=== PATIENT | male | born 1960 | race Caucasian/White ===

== ENCOUNTER → 2021-05-17 | Outpatient (CLI) | payer MEDICARE, MEDICAID ==
--- NOTE | 2021-05-17 15:57 | CARD ---
MR#: [id number] Date of Study: 05/17/2021 Ordering Physician: HERMINIO RAMIREZ, Referring Physician: HERMINIO RAMIREZ, Tech: Sahil Velazquez [facility] APPROVED REPORT EXAM: Two-dimensional and M-mode echocardiogram with Doppler and color Doppler. Other Information Quality : FairHR: 59bpm Rhythm : NSR INDICATION Dyspnea 2D DIMENSIONS Left Atrium(2D)3.5 (1.6-4.0cm)IVSd1.1 (0.7-1.1cm) Aortic Root(2D)3.1 (2.0-3.7cm)LVDd3.4 (3.9-5.9cm) LVOT Diameter1.9 (1.8-2.4cm)PWd1.1 (0.7-1.1cm) LVDs2.4 (2.5-4.0cm)FS (%) 29.4 % SV27.2 mlLVEF(%)57.5 (>50%) Aortic Valve AoV Peak Rasta.123.4cm/sAoV VTI25.1cm AO Peak GR.6.1mmHgLVOT Peak Rasta.123.7cm/s LVOT VTI 25.42cmAO Mean GR.3mmHg YENNY (VMAX)2.27qp0KKT (VTI)2.91cm2 Mitral Valve MV E Smvaxjbg07.1cm/sMV DECEL [id number] MV A Yoenqlku47.9cm/sMV NLT95nq E/A Ratio0.9MVA (PHT)4.61cm2 TDI E/Lateral E'6.7E/Medial E'9.5 Pulmonary Valve PV Peak Jfkqpoub98.1cm/sPV Peak Grad.3mmHg Tricuspid Valve TR P. Fpzvnzdl735jh/sTR Peak Gr.21mmHg Pulmonary Vein S1 Wwaztgbw58.4cm/sD2 Jizdvzos90.1cm/s LEFT VENTRICLE The left ventricle is normal size. There is normal left ventricular wall thickness. The left ventricu lar systolic function is normal. The ejection fraction is 55-60%. There is normal LV segmental wall m otion. The left ventricular diastolic function and filling is normal for age. No left ventricle throm bus noted on this study. There is no ventricular septal defect visualized. There is no left ventricul ar aneurysm. There is no mass noted in the left ventricle. RIGHT VENTRICLE The right ventricle is normal size. There is normal right ventricular wall thickness. The right ventr icular systolic function is normal. ATRIA The left atrium size is normal. The right atrium size is normal. The interatrial septum is intact wit h no evidence for an atrial septal defect or patent foramen ovale as noted on 2-D or Doppler imaging. AORTIC VALVE The aortic valve is thickened but opens well. Doppler and Color Flow revealed trace aortic regurgitat ion. There is no significant aortic valvular stenosis. There is no aortic valvular vegetation. MITRAL VALVE The mitral valve is normal in structure and function. There is no evidence of mitral valve prolapse. There is no mitral valve stenosis. Doppler and Color-flow revealed trace mitral regurgitation. TRICUSPID VALVE The tricuspid valve is normal in structure and function. Doppler and Color Flow revealed trace tricus pid regurgitation. There is no tricuspid valve prolapse or vegetation. There is no tricuspid valve st enosis. PULMONIC VALVE The pulmonary valve is normal in structure and function. Doppler and Color Flow revealed no pulmonic valvular regurgitation. There is no pulmonic valvular stenosis. GREAT VESSELS The aortic root is normal in size. The ascending aorta is normal in size. The pulmonary artery is nor mal. The IVC is normal in size and collapses >50% with inspiration. PERICARDIAL EFFUSION There is no pleural effusion. There is no evidence of significant pericardial effusion. Critical Notification Critical Value: No <Conclusion> The left ventricular systolic function is normal. The ejection fraction is 55-60%. There is normal LV segmental wall motion. Trace mitral regurgitation. Trace tricuspid regurgitation. There is no evidence of significant pericardial effusion. Signed by : Nain Amaya, Electronically Approved : 05/17/2021 15:56:51
== END ==
LOC: ECHO 09:09
PROVIDERS: ATTEND Family Medicine
DX: R55 Syncope and collapse (principal); I10 Essential (primary) hypertension; F17.210 Nicotine dependence, cigarettes, uncomplicated; R06.00 Dyspnea, unspecified
CPT/HCPCS: 93306; C8929

== ENCOUNTER 2021-09-02 11:32 | Emergency (ER) | payer MEDICARE, MEDICAID ==
[~2021-09-02] VITALS: Ht 177.8 cm; Wt 85.0 kg
[2021-09-02 11:42] VITALS: BP 162/91
[2021-09-02] MEDS ORDERED: HALOPERIDOL LACTATE 5 MG/ML VIAL. ONE (11:48)
[2021-09-02] MEDS ORDERED: MIDAZOLAM HCL/PF 2 MG/2 ML VIAL. ONE (11:48)
[2021-09-02 12:09] LABS: BASO # 0.1 x10^3/uL (0.0-0.2); BASO % 1 % (0-3); EOS % 0 % (0-3); HEMATOCRIT 44.8 % (39.0-53.0); HEMOGLOBIN 15.1 g/dL (13.0-17.5); LYMPH % 7 % (24-48); MEAN CORPUSCULAR HEMOGLOBIN 32 pg (25-35); MEAN CORPUSCULAR HGB CONC 34 g/dL (31-37); MEAN CORPUSCULAR VOLUME 96 fL (79-100); MONO # 1.4 x10^3/uL (0.0-1.1); MONO % 9 % (0-9); NEUT # 13.3 x10^3/uL (1.8-7.7); NEUT % 84 % (31-73); PLATELET COUNT 214 x10^3/uL (140-400); RED BLOOD COUNT 4.68 x10^6/uL (4.30-5.70); RED CELL DISTRIBUTION WIDTH 13.9 % (11.5-14.5); WHITE BLOOD COUNT 15.8 x10^3/uL (4.0-11.0)
[2021-09-02 12:17] LABS: PROTHROMBIN TIME PATIENT 13.5 SEC (11.7-14.0)
--- NOTE | 2021-09-02 12:17 | RAD ---
EXAMINATION: XR PELVIS 1-2V. HISTORY: 61 years Male Reason: fall, altered mental status , pain FINDINGS: No fracture, dislocation or radiopaque foreign body. The joint spaces and articular surfaces appea r unremarkable. IMPRESSION: Unremarkable exam. Electronically signed by: Eduardo Cardenas MD (09/02/2021 12:14 PM) [id number]
--- NOTE | 2021-09-02 12:23 | RAD ---
XR CHEST 1V History: Fall, altered mental status. Comparison: None. Technique: Portable AP radiograph of the chest. Findings: A 10 cm linear metallic density projects over the right chest horizontally which is favored to repres ent superimposed artifact. The lungs are adequately inflated. No focal airspace consolidation, pleural effusion or pneumothorax. There is calcified left lower lobe granuloma. Cephalization and prominence of the pulmonary vasculat ure. The heart size is normal. Calcification of the aortic arch. The osseous structures and soft tiss ues are unremarkable. Impression: 1. Pulmonary vascular congestion. 2. 10 cm linear metallic density projecting over the right chest horizontally favored to represent e xternal artifact. Electronically signed by: Jarek Randall MD (09/02/2021 12:21 PM) [id number]
--- NOTE | 2021-09-02 12:34 | EKG ---
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
[2021-09-02 12:39] LABS: CALCIUM 8.9 mg/dL (8.5-10.1); CREATININE 1.3 mg/dL (0.7-1.3); GFR 55.8; POTASSIUM 3.9 mmol/L (3.5-5.1)
[2021-09-02 12:41] LABS: ALBUMIN 3.7 g/dL (3.4-5.0); ALBUMIN/GLOBULIN RATIO 1.1 (1.0-1.7); DIRECT BILIRUBIN 0.2 mg/dL (0.0-0.2); TOTAL BILIRUBIN 0.7 mg/dL (0.2-1.0); TOTAL PROTEIN 7.1 g/dL (6.4-8.2)
[2021-09-02 12:56] LABS: BACTERIA,URINE 0 /HPF (0-FEW)
[2021-09-02 12:56] LABS: % BANDS 1 % (0-9); % LYMPHS 5 % (24-48); % MONOS 3 % (0-10); % SEGS 91 % (35-66)
[2021-09-02 12:57] LABS: PLT ESTIMATE ADEQUATE (ADEQUATE)
[2021-09-02] MEDS ORDERED: DIPHTH,PERTUSS(ACELL),TET TOX 0.5 ML DISP.SYRIN. VAX IM ONE (13:00)
--- NOTE | 2021-09-02 13:02 | RAD ---
Exam Date: 09/02/2021 11:[address] HEAD AND C-SPINE WO Indication: Reason: AMS ,trauma / Spl. Instructions: / History: . One or more of the following dose reduction techniques were utilized: *Automated exposure control (AEC) *Adjustment of mA and/or kV according to patient size *Use of iterative reconstruction technique *CT scan done according to ALARA, or ALARA/IMAGE GENTLY EXAMINATION: CT OF THE HEAD WITHOUT CONTRAST INDICATION: Trauma, head injury, headache; TECHNIQUE: Noncontrast helical axial CT images of the head were obtained. FINDINGS: Motion artifact limits evaluation. There is an acute subdural hematoma along the left posterior falx and left tentorium measuring up to 4-5 mm in maximal thickness on coronal images. The ventricles and sulci are prominent consistent with cerebral volume loss. Patchy ill-defined low attenuation areas in the subcortical and periventricular white matter bilaterally are consistent with microvascular disease. There is no evidence of mass effect, midline shift, or acute territorial in farct. The visualized paranasal sinuses, mastoid air cells, and orbits are normal in appearance. IMPRESSION: Acute subdural hematoma along the left posterior falx and left tentorium without significant mass eff ect or midline shift. Volume loss and microvascular disease. Findings discussed with Gagan Alvarez RN at 09/02/2021 12:39 PM. FOR INTERNAL CODING PURPOSES Critical result: RESULT CODE: (C) EXAMINATION: CT OF THE CERVICAL SPINE WITHOUT CONTRAST Clinical Indication: Cervical spine pain after trauma Technique: Thin cut helical axial CT images through the cervical spine were obtained without contrast on a multi-detector CT scanner. Source data was then reconstructed into sagittal and coronal planes. Findings: Alignment is maintained without spondylolisthesis. Vertebral body heights are maintained without acute fracture. Mild to moderate multilevel degenerativ e changes are noted. No significant prevertebral soft tissue swelling is demonstrated. No severe osse ous central canal stenosis is seen. Mild biapical scarring is seen in the lungs. Impression: No evidence of acute cervical spine fracture or subluxation. Electronically signed by: Massimo Franks MD (09/02/2021 12:59 PM) [id number]
[2021-09-02] MEDS ORDERED: ETOMIDATE 20 MG/10 ML VIAL. IV ONE ×2 (13:05→13:15)
[2021-09-02] MEDS ORDERED: ROCURONIUM 50 MG/5 ML VIAL. ONE (13:05)
[2021-09-02] MEDS ORDERED: PROPOFOL 100 ML IV PRN (13:15)
[2021-09-02] MEDS ORDERED: ROCURONIUM 50 MG/5 ML VIAL. IV ONE (13:15)
[2021-09-02 13:29] LABS: BARBITURATES NEG (NEG); BENZODIAZEPINES NEG (NEG); CANNABINOIDS POS (NEG); COCAINE NEG (NEG); METHADONE NEG (NEG); OPIATES POS (NEG); PHENCYCLIDINE NEG (NEG)
[2021-09-02 13:33] LABS: AMPHETAMINE/METHAMPHETAMINE NEG (NEG)
[2021-09-02] MEDS ORDERED: methylPREDNISolone SOD SUCC PF 125 MG/2 ML VIAL. IV ONE (13:45)
[2021-09-02] MEDS ORDERED: IPRATRPIUM/ALBUTEROL 0.5/2.5MG 3 ML NEBU. NEB ONE (13:45)
[2021-09-02] MEDS ORDERED: niCARdipine INJ. IV ONE (13:52)
--- NOTE | 2021-09-02 13:56 | RAD ---
AP chest x-ray HISTORY: Status post ET and OG tube placement. COMPARISON: Chest x-ray September 02, 2021 FINDINGS: The thin metallic density across the right chest on the prior study has now moved and is cu rrently across the left upper chest presumably something outside of the patient. The right lateral ch est including portion of the lung bases and ribs is outside of the field of view. Orogastric tube tip left upper quadrant abdomen. Endotracheal tube tip 9 cm above the hayley. Heart size is normal. Calc ified granuloma left lower lobe. Small calcification density right upper lobe has changed location mo re medial and superior since the prior exam presumably something outside the patient. No pneumothorax . No pleural effusions. No pulmonary opacities. IMPRESSION: 1. Lines and tubes as described above. 2. No acute process evident. 3. Migration of the thin linear metallic density from the right chest on the prior study, to the left upper chest on the current exam, suggesting this is something outside of the patient. See above. Electronically signed by: Yakov Marte MD (09/02/2021 1:53 PM) [facility]
--- NOTE | 2021-09-02 14:02 | PHYS DOC ---
Past Medical History Past Medical History: Unknown Smoking Status: Unknown if ever smoked General Adult EDM: Chief Complaint: ALTERED MENTAL STATUS HPI: HPI: 61-year-old male, unknown past medical/surgical/allergy history, presents for altered mental status status post fall. Per EMS, patient was found on the ground by neighbors on his back at the bottom of the stairs. BGM was within normal. Review of Systems: Review of Systems: Unable to obtain review of systems given mental status Heart Score: C/O Chest Pain: No Risk Factors: Risk Factors: DM, Current or recent (<one month) smoker, HTN, HLP, family history of CAD, obesity. Risk Scores: Score 0 - 3: 2.5% MACE over next 6 weeks - Discharge Home Score 4 - 6: 20.3% MACE over next 6 weeks - Admit for Clinical Observation Score 7 - 10: 72.7% MACE over next 6 weeks - Early Invasive Strategies Current Medications: Current Medications Medications (Trade) Dose Ordered Sig/Makenna Start Time Stop Time Status Last Admin Dose Admin Albuterol/ Ipratropium (Duoneb) 3 ml 1X ONCE 09/02/21 13:45 09/02/21 13:46 DC 09/02/21 13:45 3 ML Diphtheria/ Tetanus/Acell Pertussis (Boostrix) 0.5 ml ONCE ONCE 09/02/21 13:00 09/02/21 13:01 DC 09/02/21 12:49 0.5 ML Etomidate (Amidate) 20 mg 1X ONCE 09/02/21 13:15 09/02/21 13:16 DC Haloperidol Lactate (Haldol Inj) 5 mg STK-MED ONCE 09/02/21 11:48 09/02/21 11:48 DC Methylprednisolone Sodium Succinate (SOLU-Medrol 125MG VIAL) 125 mg 1X ONCE 09/02/21 13:45 09/02/21 13:46 DC Midazolam HCl (Versed) 2 mg STK-MED ONCE 09/02/21 11:48 09/02/21 11:48 DC Nicardipine HCl (Cardene) 25 mg STK-MED ONCE 09/02/21 13:52 09/02/21 13:52 DC Nicardipine HCl 50 mg/Sodium Chloride 250 ml @ 25 mls/hr CONT PRN 09/02/21 14:00 Propofol 100 ml @ 2.55 mls/hr CONT PRN 09/02/21 13:15 Rocuronium [place] (Zemuron) 100 mg 1X ONCE 09/02/21 13:15 09/02/21 13:16 DC Allergies: Allergies: Allergies Coded Allergies Type Severity Reaction Last Updated Verified No Known Drug Allergies 09/02/21 No Physical Exam: PE: Constitutional: Thin elderly male, well nourished, no acute distress, non-toxic appearance. [] HENT: Normocephalic, atraumatic, bilateral external ears normal, oropharynx moist, no oral exudates, nose normal. [] Eyes: PERRLA, EOMI, conjunctiva normal, no discharge. [] Neck: c collar in place; Normal range of motion, no tenderness, supple, no stridor. [] Cardiovascular:Heart rate regular rhythm, no murmur [] Lungs & Thorax: Bilateral breath sounds clear to auscultation [] Abdomen: Bowel sounds normal, soft, no tenderness, no masses, no pulsatile mas ses. [] Skin: Warm, dry, no erythema, no rash. [] Back: No tenderness, no CVA tenderness. [] Extremities: Multiple skin tears and superficial abrasions along lower extremities, No tenderness, no cyanosis, no clubbing, ROM intact, no edema. [] Neurologic: Alert and but not oriented, does not follow commands, normal motor function, normal sensory function[] Current Patient Data: Labs: Laboratory Tests Test 09/02/21 11:50 09/02/21 12:09 White Blood Count 15.8 x10^3/uL (4.0-11.0) H Red Blood Count 4.68 x10^6/uL (4.30-5.70) Hemoglobin 15.1 g/dL (13.0-17.5) Hematocrit 44.8 % (39.0-53.0) Mean Corpuscular Volume 96 fL (79-100) Mean Corpuscular Hemoglobin 32 pg (25-35) Mean Corpuscular Hemoglobin Concent 34 g/dL (31-37) Red Cell Distribution Width 13.9 % (11.5-14.5) Platelet Count 214 x10^3/uL (140-400) Neutrophils (%) (Auto) 84 % (31-73) H Lymphocytes (%) (Auto) 7 % (24-48) L Monocytes (%) (Auto) 9 % (0-9) Eosinophils (%) (Auto) 0 % (0-3) Basophils (%) (Auto) 1 % (0-3) Neutrophils # (Auto) 13.3 x10^3/uL (1.8-7.7) H Lymphocytes # (Auto) 1.0 x10^3/uL (1.0-4.8) Monocytes # (Auto) 1.4 x10^3/uL (0.0-1.1) H Eosinophils # (Auto) 0.0 x10^3/uL (0.0-0.7) Basophils # (Auto) 0.1 x10^3/uL (0.0-0.2) Segmented Neutrophils % 91 % (35-66) H Band Neutrophils % 1 % (0-9) Lymphocytes % 5 % (24-48) L Monocytes % 3 % (0-10) Platelet Estimate Adequate (ADEQUATE) Prothrombin Time 13.5 SEC (11.7-14.0) Prothrombin Time INR 1.1 (0.8-1.1) Sodium Level 147 mmol/L (136-145) H Potassium Level 3.9 mmol/L (3.5-5.1) Chloride Level 110 mmol/L (98-107) H Carbon Dioxide Level 24 mmol/L (21-32) Anion Gap 13 (6-14) Blood Urea Nitrogen 15 mg/dL (8-26) Creatinine 1.3 mg/dL (0.7-1.3) Estimated GFR (Cockcroft-Gault) 55.8 BUN/Creatinine Ratio 12 (6-20) Glucose Level 111 mg/dL (70-99) H Calcium Level 8.9 mg/dL (8.5-10.1) Total Bilirubin 0.7 mg/dL (0.2-1.0) Direct Bilirubin 0.2 mg/dL (0.0-0.2) Aspartate Amino Transferase (AST) 41 U/L (15-37) H Alanine Aminotransferase (ALT) 28 U/L (16-63) Alkaline Phosphatase 53 U/L (46-116) Creatine Kinase 701 U/L (39-308) H Troponin I High Sensitivity 28 ng/L (4-75) CH-Rsd-U-Type Natriuretic Peptide 1622 pg/mL (0-124) H Total Protein 7.1 g/dL (6.4-8.2) Albumin 3.7 g/dL (3.4-5.0) Albumin/Globulin Ratio 1.1 (1.0-1.7) Urine Collection Type U cath Urine Color (Auto) Light yellow Urine Turbidity Clear Urine pH (Auto) 7.5 (<5.0-8.0) Urine Specific [place] 1.018 (1.000-1.030) Urine Protein (Auto) Negative mg/dL (Negative) Urine Glucose (Auto)(UA) Negative mg/dL (Negative) Urine Ketones (Auto) Trace mg/dL (Negative) Urine Blood (Auto) Negative (Negative) Urine Nitrite Negative (Negative) Urine Bilirubin (Auto) Negative (Negative) Urine Urobilinogen (Auto) Normal mg/dL (Normal) Urine Leukocyte Esterase (Auto) Negative (Negative) Urine RBC 3-5 /HPF (0-2) Urine WBC 5-10 /HPF (0-4) Urine Squamous Epithelial Cells Occ /LPF Urine Bacteria 0 /HPF (0-FEW) Urine Mucus Slight /LPF Urine Opiates Screen Pos (NEG) Urine Methadone Screen Neg (NEG) Urine Barbiturates Neg (NEG) Urine Phencyclidine Screen Neg (NEG) Urine Amphetamine/Methamphetamine Neg (NEG) Urine Benzodiazepines Screen Neg (NEG) Urine Cocaine Screen Neg (NEG) Urine Cannabinoids Screen Pos (NEG) Urine Ethyl Alcohol Neg (NEG) Laboratory Tests 09/02/21 11:50 Laboratory Tests 09/02/21 11:50 Vital Signs: Vital Signs Date Time Temp Pulse Resp B/P (MAP) Pulse Ox O2 Delivery O2 Flow Rate FiO2 09/02/21 13:45 99 Ventilator EKG: EKG: [] Radiology/Procedures: Radiology/Procedures: ENDOTRACHEAL INTUBATION BY ME: Pre assessment performed. See preceding note for details. Pre-oxygenation performed with 100% oxygen RSI: Performed w/o complication or hypoxic events. Medications as ordered. Blade: S4 ET Tube: 8.0 cm Depth: 22 cm at the lip Intubation confirmed by colorimetric CO2, equal breath sounds, quiet over the stomach. CHEST X-RAY 1V INTERPRETED BY ME: 4 cm above the hayley ET tube. Normal soft tissue, No pneumothorax. Course & Med Decision Making: Course & Med Decision Making Pertinent Labs and Imaging studies reviewed. (See chart for details) Additional Social History: PMD from non-affiliated facility. Patient Lives at home. Family History: Non-pertinent to today's complaint. Nursing Notes Reviewed Previous Medical Records requested via [facility] Web: Reviewed by me. EMERGENT LABS AND DIAGNOSTIC STUDIES: Results were reviewed and interpreted by me as below 12-lead EKG Interpretation by Tres Virgen MD: Normal Sinus Rhythm at 84 beats per minute Normal axis Normal intervals No ectopy No PVC No other acute ST or T wave abnormalities Overall impression is normal EKG PROCEDURE: CT HEAD AND CERVICAL SPINE WO IMPRESSION: Acute subdural hematoma along the left posterior falx and left tentorium without significant mass effect or midline shift. Volume loss and microvascular disease. PROCEDURE: PORTABLE CHEST 1V Impression: 1. Pulmonary vascular congestion. 2. 10 cm linear metallic density projecting over the right chest horizontally favored to represent external artifact. PROCEDURE: PELVIS IMPRESSION: Unremarkable exam. EMERGENCY DEPARTMENT COURSE/ MEDICAL DECISION MAKING: The patient was placed on a monitor car operator, continuous pulse oximetry and was given supplemental oxygen. I examined the patient, evaluated and addressed patient's chief complaint. Patient is a 61-year-old male, unknown past medical history, arrives in c-collar status post mechanical fall, found at the bottom of steps by his neighbors with multiple superficial abrasions along his extremities. Patient is awake and alert but not oriented. Does not follow commands. Climbing out of bed. Patient initially given 5 of Haldol IM and [address] head and C-spine showing acute subdural hematoma along the left posterior falx and left tentorium, no significant mass-effect or midline shift. On reassessment, patient is still notably altered, trying to climb out of bed, swinging at nurses. No neurosurgery on-call here. Plan for higher level of care transfer to facility with neurosurgery. Status post intubation for airway protection. Used nora and etomidate for intubation. Propofol drip and fentanyl push for post sedation. Nicardipine drip for hypertension. Patient accepted for transfer [facility]. After evaluation, I believe the patient is at risk for decompensation and will require admission. However, patients abnormal vital signs/labs are not consistent with sepsis, and the patient does not meet the criteria for sepsis at this time. I discussed the patient's case with Radha Negro, who expressed understanding and agreed to admit the patient. I suspect the patient will be hospitalized for at least 2 midnights. CRITICAL CARE NOTE: The patient was at risk for cardiopulmonary decompensation and required aggressive intervention by me. Critical care time provided by me, excluding other separately billable procedures exceeded 35 minutes. This time included: Obtaining history, Examination of the patient, Development of treatment plan, Ordering and reviewing diagnostic test results Discussion of treatment plan, Coordinating care with ed staff, Supervising IV medications, Multiple bedside reassessments DIAGNOSTIC IMPRESSION: 1. acute subdural 2. fall 3. AMS DISPOSITION: Disposition: Transfer higher level of care [facility] Condition: Guarded Dragon Disclaimer: Dragon Disclaimer: This electronic medical record was generated, in whole or in part, using a voice recognition dictation system. Departure Departure Impression: Primary Impression: Subdural hematoma Additional Impressions: Fall Altered mental status Disposition: 02 SHORT TERM HOSPITAL Condition: GUARDED Referrals: HERMINIO RAMIREZ MD (PCP) RACHEL VIRGEN MD September 02, 2021 14:02
[2021-09-02] MEDS ORDERED: fentaNYL PF VIAL 100 MCG/2 ML VIAL ONE (14:06)
[2021-09-02] MEDS ORDERED: fentaNYL PF VIAL 100 MCG/2 ML VIAL IVP ONE (14:15)
== END 2021-09-02 14:20 | disposition short-term general hospital (02) ==
LOC: ER 11:32
DX: S06.5X9A Traumatic subdural hemorrhage with loss of consciousness of unspecified duration, initial encounter (principal); S81.812A Laceration without foreign body, left lower leg, initial encounter; S81.811A Laceration without foreign body, right lower leg, initial encounter; R41.82 Altered mental status, unspecified; W18.39XA Other fall on same level, initial encounter; Y93.89 Activity, other specified; Y92.89 Other specified places as the place of occurrence of the external cause; Y99.8 Other external cause status
CPT/HCPCS: 36415; 70450; 71045; 72125; 72170; 80053; 80076; 80307; 81001; 82550; 83880; 84484; 85007; 85025; 85610; 87077; 87086; 90471; 90715; 93005; 94640; 99291; P9612; 94002